=== PATIENT | male | born 1990 | race Caucasian/White ===

== ENCOUNTER 2018-04-22 08:00 | Outpatient (RCR) | payer OTHER, SELFPAY ==
--- NOTE | 2018-04-08 09:27 | HP.PTEVAL ---
Patient's Visit Information ARLINE GUPTA is a 27 year old M referred to Physical Therapy by Cliff Luz, BRITTNI-C with a diagnosis of . Date of Evaluation: 04/08/18 Physical Therapist: Scottie Diaz PT, - Visit Plan Frequency: 2x /Week Duration: 4 Weeks Plan: MICHELE RAMOS'S ,POSTURAL TRAINING,PROGRESS TO DLS ABD /PACK PROGRAM ,OKAY FOR MODALITIES FOR PAIN RELEIVE - Subjective Subjective: This 27 y/o male presents to physical therapy with with chronic back pain,scoliosis ot thoraciclumbar spine for 6 years. Patient has had pain since pain in [place].Pain located lumbar symmtrical with ocassional radiculopathy right leg. Patient has h/o spasms causing lumbar shit left side.Symmptoms aggravated bening,lifting,job demands,extended standing.Symptoms better rest . Pateint seen chiropractor worse. Bowel/bladder -. Coughing/sneezing postive. Denies partehrsia/tingling. Patient sleeping pattern afects sleeping.Patient seen DR ,x-rays showed DDD and recommended MEDS. Patient pain affects QOL and job demands. VOCATION: [employer]. SOCIAL: has children - Pain Bilateral Back Pain Intensity (Out of 10): 4 Pain Intensity Range: 10 - Objective POSTURE: WFL. GAIT: normal madi reciprocal pattern. NEURO: denies parathesia/tingling, reflexes L3-4,L4-5.L5-S1 1/3. SYMMTRIES: align. PALAPTION: unremarkable. MMT: QUADS/HAMS 4/5,HIP 4/5 ,ANKLE 5/5,+ ANR LEFT. LUMBAR ROM: flexion mod loss ,extension min/mod loss,side glides left WFL ,min loss right slight pain. FLEXABLITY: hams mod tight with SLR + - Special Tests L/S Slump test left side: Positive L/S Slump test right side: Negative L/S Left Straight Leg Raise: Positive L/S Right Straight Leg Raise: Negative Lumbar Standing: Flexion - Mechanical Response: No effect Lumbar Standing: Flexion - Symptoms During Testing: Increases Lumbar Standing: Flexion - Symptoms After Testing: Worse Lumbar Standing: Extension - Mechanical Response: No effect Lumbar Standing: Extension - Symptoms During Testing: Increases Lumbar Standing: Extension - Symptoms After Testing: Worse Lumbar Standing: Right Side Glides - Mechanical Response: No effect Lumbar Standing: Right Side [place] - Symptoms During Testing: Increases Lumbar Standing: Right Side [place] - Symptoms After Testing: No worse Lumbar Standing: Left Side [place] - Mechanical Response: No effect Lumbar Standing: Left Side [place] - Symptoms During Testing: Decreases Lumbar Standing: Left Side [place] - Symptoms After Testing: Better Lumbar Lying: Flexion - Mechanical Response: No effect Lumbar Lying: Flexion - Symptoms During Testing: Increases Lumbar Lying: Flexion - Symptoms After Testing: Worse Lumbar Lying: Extension - Mechanical Response: No effect Lumbar Lying: Extension - Symptoms During Testing: Decreases Lumbar Lying: Extension - Symptoms After Testing: Better Comments:: hips to right Lumbar Static: Slouched Sit - Mechanical Response: No effect Lumbar Static: Slouched Sit - Symptoms During Testing: Increases Lumbar Static: Slouched Sit - Symptoms After Testing: Worse Lumbar Static: Sitting Erect - Mechanical Response: No effect Lumbar Static: Sitting Erect - Symptoms During Testing: Decreases Lumbar Static: Sitting Erect - Symptoms After Testing: Better - Goals Goal 1:: Patient to be Independant with HEP Goal Time Frame: 4-6 Weeks Goal 2:: Patient to be Independant with posture/body mechanics Goal Time Frame: 4-6 Weeks Goal 3:: Patient to decrease pain by 60% or greater to improve function with Job demands and ADL'S Goal Time Frame: 4-6 Weeks Goal 4:: Patient to improve lumbar ROM for function of recovery Goal Time Frame: 4-6 Weeks Goal 5:: Patient to be D/C to prophalaxis Goal Time Frame: 4-6 Weeks Goal 6:: Patient to improve back owestry score by 5 points to improve QOL. - Rehabilitation Potential Physical Therapy Diagnosis: This patient has derranagemnt above knee with lateral component without shift deformity. with + ANR,SLR ,flexion aggravetes symptoms better with REIL with hips shifted thus benifit from skilled PT Rehabilitation Potential: Good - Anticipated Interventions Patient/Client Instruction: Educate patient on: Condition, Plan of Care For the Purpose of:: To decrease pain, To increase ROM, To improve muscle performance and motor function, To improve ability to perform ADL's, To increase tolerance to activity/condition/position, To improve performance and independence with ADL's, To improve ability of physical actions for home/community/work/leisure, To improve health of tissue, To decrease soft tissue restriction, To increase flexibility/ROM, To improve ability to perform tasks related to life management Therapeutic Exercise to Include: Strength training, Body mechanics, Postural training, Flexibilty training, Dynamic Lumbar Stabilization For the Purpose of:: To decrease pain, To increase ROM, To improve ability to perform ADL's, To increase tolerance to activity/condition/position, To improve ability of physical actions for home/community/work/leisure, To improve health of tissue, To decrease soft tissue restriction, To increase flexibility/ROM, To reduce risk of recurrence, To improve ability to perform tasks related to life management Manual Therapy Techniques to Include: Mobilization Comment: LUMBAR For the Purpose of:: To decrease pain, To increase ROM, To improve health of tissue, To decrease soft tissue restriction TENS: Yes IF ES: Yes Cryotherapy (ice pack, ice massage): Yes Thermo therapy (hot pack): Yes For the Purpose of:: To decrease pain, To decrease swelling/inflammation, To improve nutrient delivery to tissue, To increase oxygenation perfusion, To improve health of tissue, To decrease soft tissue restriction Thank you for the opportunity to evaluate your patient. For Medicare and Medicare HMO plans, please review the plan of care and approve it. It will need to be FAXED BACK to us at [phone] for Medicare purposes. Please let me know if there are questions or concerns regarding this plan of care. Physician Signature: Date:
--- NOTE | 2018-04-22 08:36 | HP.PTDCSUM ---
HP - PT D/C Summary It has been my pleasure to treat ARLINE GUPTA under orders from NEEL HayesC, for the diagnosis of CHRONIC BACK PAIN,SCOLIOSIS OF THORACIC SPINE ,DDD for a total of 4 visit(s). Discharge Date: 04/22/18 Please see the following information for a summary of their discharge status. - Subjective Subjective: Patient reports ready for d./c doing well..no pain. Back to normal activity - Pain Bilateral Back Pain Intensity (Out of 10): 0 - Overall Improvement % Improvement: 90 - Objective Objective/Function: POSTURE: WFL. GAIT: normal madi. PALAPTION: unremarkable. NEURO: intact. MMT: quads/hams 5/5,hip 4/5. LUMBAR ROM: WNL all planes of motion. -SLR - Goals Goal 1:: Patient to be Independant with HEP Goal Progress: Goal Met Goal 2:: Patient to be Independant with posture/body mechanics Goal Progress: Goal Met Goal 3:: Patient to decrease pain by 60% or greater to improve function with Job demands and ADL'S Goal Progress: Goal Met Goal 4:: Patient to improve lumbar ROM for function of recovery Goal Progress: Goal Met Goal 5:: Patient to be D/C to prophalaxis Goal Progress: Goal Met Goal 6:: Patient to improve back owestry score by 5 points to improve QOL. Goal Progress: Goal Met - Plan Plan: D/C - D/C Information Discharge Comments: HEP AND GYM If there are questions or concerns regarding this patient's physical therapy, please feel free to call me at [phone]. Thank you for the referral of this patient. Sincerely, Scottie Diaz, PT,
== END 2018-04-22 19:00 | disposition home or self-care (01) ==
LOC: PT 08:00
PROVIDERS: Family Provider Nurse Practitioner Family; PCP Nurse Practitioner Family; Referring Provider Nurse Practitioner Family; Visit Provider Nurse Practitioner Family
DX: M54.9 Dorsalgia, unspecified (principal); M41.9 Scoliosis, unspecified; M51.36 Other intervertebral disc degeneration, lumbar region
CPT/HCPCS: 97014; 97032; 97110; 97161; G0283

== ENCOUNTER 2018-10-10 08:00 | Outpatient (RCR) | payer OTHER, SELFPAY ==
--- NOTE | 2018-07-22 07:50 | HP.PTEVAL ---
Patient's Visit Information ARLINE GUPTA is a 27 year old M referred to Physical Therapy by [facility] with a diagnosis of L ACL sprain s/p repair with HS 07/04/18. Date of Evaluation: 07/22/18 Physical Therapist: Candido Hancock, DPT, OCS, CSCS - Visit Plan Frequency: 3x /Week Duration: 2-4 Months Plan: 3x/week initially for 4-8 weeks for. 1. Patella mobs, scar massage adn knee ROM flexion and ext. 2. strength in gym and progress to I. Focus hips and knees, but please teach core adn upper body machine and progress to I with these as tolerated so he can do them before or after his appointment. 3. quad and hip flexor stretches, teach yoag flow to get I on his own SOLO. 4. ice as needed but has a nice ice machine at home. 5. Functional progression back to steps now and as appropriate progressing to agility and plyometrics. in the future. - Subjective Findings: Hurt Olman knee playing soccer in [place] a few years ago. Was limiting his activity. ACL repaired on 07/04/18 using HS. Has a brace on order. Been doing exercises including QS and AP and patellar mobs and SLR, then progressed to step ups and wall squats and standing band exercises. pain has not been an issue, sore ness with much activitiy. Gets to 4/10 on medial knee with too much activity. No pain meds. Resting elevating and icing with [employer] icing machine. Sleep is not a problem now, was tough at first. 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 Will see doctor on 08/04/18.Needs to climb ladders and crawl around. Basic ADLS are OK, slow but steady. can't carry laundry to basement without handrail. Has children age 3 and 1. Has not been comfortable getting on floor yet. Hobbies including hunting and sports(basketball and soccer0. Has not been able to do those things. - Pain L kene Pain Intensity (Out of 10): 1 Pain Intensity Range: 0, 5 - Objective Walks I with minor L antalgia today, transfers I, steps are reciprocal without rail but meaghan on L. L knee AROM 0-109 and 115 after stretching , 105 in prone. 120 after bike adn dips. R knee to 125. Tightness in L HS with -25 90/90 test vs -15 on R. quad and gastroc min tight. AROM hips and ankles otherwise WFL. strength B hips at 4- abd and ext, 4+ hip flexion and adduction. knee strength ext L NT, HS 4/5. R side at 5/5. Ankle strength at 5/5 B. Patella moves well and nearly symmetrical. 2 ext lag with SLR on L. Incisions have healed well but are sore to the touch. No signs of redness heat or swelling. - claudia Kilgore - Goals Goal 1:: ST: Full aROM L knee without pain Goal Time Frame: 2-4 Weeks Goal 2:: Normal ADLS includijng steps adn walking pattern without pain Goal Time Frame: 2-4 Weeks Goal 3:: Pt ready to return to work activities Goal Time Frame: 8-12 Weeks Goal 4:: Plan to return to sports related activities of soccer and basketball Goal Time Frame: 12-16 Weeks Goal 5:: I approp HEP to minimize future problems Goal Time Frame: 6-8 Weeks - Rehabilitation Potential Physical Therapy Diagnosis: L ACL sprain s/p repair with HS 07/04 Rehabilitation Potential: Good - Anticipated Interventions Patient/Client Instruction: Educate patient on: Condition, Plan of Care For the Purpose of:: To decrease pain, To increase ROM, To improve muscle performance and motor function, To improve ability of physical actions for home/community/work/leisure Therapeutic Exercise to Include: Strength training, Flexibilty training, Gait and locomotor training, Passive ROM, Active ROM For the Purpose of:: To decrease pain, To increase ROM, To improve muscle performance and motor function, To improve ability of physical actions for home/community/work/leisure Manual Therapy Techniques to Include: Scar massage, Passive ROM, Soft tissue mobilization For the Purpose of:: To decrease pain, To increase ROM Cryotherapy (ice pack, ice massage): Yes For the Purpose of:: To decrease swelling/inflammation Thank you for the opportunity to evaluate your patient. For Medicare and Medicare HMO plans, please review the plan of care and approve it. It will need to be FAXED BACK to us at [phone] for Medicare purposes. For Medicare only, by signing this I certify the plan of care. Please let me know if there are questions or concerns regarding this plan of care. Physician Signature: Date:
--- NOTE | 2018-08-19 09:00 | HP.PTREVAL ---
[facility], It has been my pleasure to treat ARLINE GUPTA over the last 12 visits for L ACL sprain s/p repair with HS 07/04/18. Please see the progress note below for an update on the physical therapy plan of care! Subjective: Pain not much, a little bit here and there. Bending to en range used to hurt but not anymore. To doctor in 2-3 weeks. Saw him 2 weks ago and is way ahead of schedule. Sleeping well most of time. Steps are normal. Exercises not bothersome, not doing HEP other than some yoga flows. Objective/Function: 126 flexion L and 131 R. Similar quad tightness B. HS moving well. Walks normal and steps reciprocal and normal. PT DOING EXCELLENT ADN IS LIMITED BY HEALING PROCESS. pT DOING WELLA DN WAY AHEAD OF SCHEDULE. Plan Plan: PT TO CONTINUE I GYM WORKOUT 3X/WEEK, PLEASE ADD TODAYS EXERCISES TO HIS i PROGRAM THEN PROGRESS STRENGTH SLOWLY ON A WEEKLY BASIS GIVING HIM THE NEW STUFF TO HIS TOLERANCE. FOLLOW TRAN PROTOCOL Goals Goal 1:: ST: Full aROM L knee without pain Goal Time Frame: 2-4 Weeks Goal Progress: Goal Met Goal 2:: Normal ADLS includijng steps adn walking pattern without pain Goal Time Frame: 2-4 Weeks Goal Progress: Goal Met Goal 3:: Pt ready to return to work activities Goal Time Frame: 8-12 Weeks Goal 4:: Plan to return to sports related activities of soccer and basketball Goal Time Frame: 12-16 Weeks Goal 5:: I approp HEP to minimize future problems Goal Time Frame: 6-8 Weeks Goal Progress: Progressing Anticipated Interventions Patient/Client Instruction: Educate patient on: Condition, Plan of Care For the Purpose of:: To decrease pain, To increase ROM, To improve muscle performance and motor function, To improve ability of physical actions for home/community/work/leisure Therapeutic Exercise to Include: Strength training, Flexibilty training, Gait and locomotor training, Passive ROM, Active ROM For the Purpose of:: To decrease pain, To increase ROM, To improve muscle performance and motor function, To improve ability of physical actions for home/community/work/leisure Manual Therapy Techniques to Include: Scar massage, Passive ROM, Soft tissue mobilization For the Purpose of:: To decrease pain, To increase ROM Cryotherapy (ice pack, ice massage): Yes For the Purpose of:: To decrease swelling/inflammation Please do not hesitate to contact me at [phone] by phone or if you have questions or concerns regarding this new plan of care! Sincerely, Candido Hancock, DPT, OCS, CSCS
--- NOTE | 2018-10-10 08:55 | HP.PTREVAL ---
[facility], It has been my pleasure to treat ARLINE GUPTA over the last 17 visits for L ACL sprain s/p repair with HS 07/04/18. Please see the progress note below for an update on the physical therapy plan of care! Subjective: Started working last week. Very tired overall. No pain in knee lately. 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 Objective/Function: 26.5 inches L and 27 inches R. quad 107 L and 101 R pounds. 80# L HS and 95 # R HS. Jumping and agility without compensation or pain and looking very good with minmal workout today. Pt does nto have time to get into therapy more frequently and questionable whether he will have time to workout. Plan Plan: f/u in November as patient is busy with wrok and getting back to school but will attempt to continue to wrokout regularly per my recommendation. Plan to progress every other week for 2 months until meets return to sport criteria as he wants to play basketball at some point. Goals Goal 1:: ST: Full aROM L knee without pain Goal Time Frame: 2-4 Weeks Goal Progress: Goal Met Goal 2:: Normal ADLS includijng steps adn walking pattern without pain Goal Time Frame: 2-4 Weeks Goal Progress: Goal Met Goal 3:: Pt ready to return to work activities Goal Time Frame: 8-12 Weeks Goal Progress: Goal Met Goal 4:: Plan to return to sports related activities of soccer and basketball Goal Time Frame: 12-16 Weeks Goal Progress: Progressing, approp Goal 5:: I approp HEP to minimize future problems Goal Time Frame: 6-8 Weeks Goal Progress: Progressing, approp Anticipated Interventions Patient/Client Instruction: Educate patient on: Condition, Plan of Care For the Purpose of:: To decrease pain, To increase ROM, To improve muscle performance and motor function, To improve ability of physical actions for home/community/work/leisure Therapeutic Exercise to Include: Strength training, Flexibilty training, Gait and locomotor training, Passive ROM, Active ROM For the Purpose of:: To decrease pain, To increase ROM, To improve muscle performance and motor function, To improve ability of physical actions for home/community/work/leisure Manual Therapy Techniques to Include: Scar massage, Passive ROM, Soft tissue mobilization For the Purpose of:: To decrease pain, To increase ROM Cryotherapy (ice pack, ice massage): Yes For the Purpose of:: To decrease swelling/inflammation Please do not hesitate to contact me at [phone] by phone or if you have questions or concerns regarding this new plan of care! Sincerely, Candido Hancock, DPT, OCS, CSCS
--- NOTE | 2018-12-29 16:04 | HP.PT.NRP ---
HP - Discharge Summary (1) - Patient Information ARLINE GUPTA was seen in my office for initial evaluation on 07/22/18. The following Plan of Care was established for this patient: Initial Frequency: 3x /Week Initial Duration: 2-4 Months - Anticipated Interventions Patient/Client Instruction: Educate patient on: Condition, Plan of Care For the Purpose of:: To decrease pain, To increase ROM, To improve muscle performance and motor function, To improve ability of physical actions for home/community/work/leisure Therapeutic Exercise to Include: Strength training, Flexibilty training, Gait and locomotor training, Passive ROM, Active ROM For the Purpose of:: To decrease pain, To increase ROM, To improve muscle performance and motor function, To improve ability of physical actions for home/community/work/leisure Manual Therapy Techniques to Include: Scar massage, Passive ROM, Soft tissue mobilization For the Purpose of:: To decrease pain, To increase ROM Cryotherapy (ice pack, ice massage): Yes For the Purpose of:: To decrease swelling/inflammation This patient was last seen in our office 10/10/18. Pertinent comments regarding their Physical therapy will appear below: Pt seen 17 visits of POC and was going to workout I after last session and f/u with PT in early November as he was very busy. He neglected to schedule or attend randy session. At this point, it has been over two months and I will discontinue due to nonattendance. At this point I will be discontinuing this patient from physical therapy. I would be happy to see this patient again in the future if found appropriate by the physician. Thank you! Candido Hancock, DPT, OCS, CSCS
== END 2018-10-10 19:00 | disposition home or self-care (01) ==
LOC: PT 08:00
PROVIDERS: Family Provider Nurse Practitioner Family; PCP Nurse Practitioner Family
DX: M23.612 Other spontaneous disruption of anterior cruciate ligament of left knee (principal)
CPT/HCPCS: 97110; 97140; 97162; 97530

== ENCOUNTER 2021-07-25 08:23 | Outpatient (CLI) | payer BC, SELFPAY ==
--- NOTE | 2021-07-25 08:29 | RAD_ITS ---
STUDY: X-RAY - ESOPHAGUS (BARIUM SWALLOW) WITH FLUOROSCOPY REASON FOR EXAM: Male, 30 years old. DYSPHAGIA TECHNIQUE: 11 view(s) of the esophagus were obtained following swallowing of barium. FLUOROSCOPY TIME (if supplied): (48 seconds) minutes/seconds COMPARISON: None. FINDINGS: There is no demonstrated esophageal foreign body. There is no demonstrated stricture or mucosal abnormality. Normal gastroesophageal junction, without a demonstrated hiatal hernia. The patient ingested a 12 mm tablet of barium without any difficulty. Normal visualized aortic arch and descending thoracic aorta. Normal visualized pulmonary parenchyma. Normal visualized osseous structures of the thorax. RAD/Esophagus Dual Contrast IMPRESSION: Normal plain film x-ray examination (barium swallow) of the esophagus. Electronically Signed: Jamey Betancur MD at 9:59 EST , Service support ,
--- NOTE | 2021-07-25 08:29 | US_ITS ---
STUDY: THYROID ULTRASOUND REASON FOR EXAM: Male, 30 years old. THYROMEGALY TECHNIQUE: Ultrasound evaluation of the thyroid was performed with real-time and static lee-scale imaging. COMPARISON: None. FINDINGS: RIGHT LOBE: The right lobe of the thyroid gland is slightly enlarged and measures 5.4 cm x 2.7 cm x 2 cm. There is a heterogeneous echotexture. There are no demonstrated solid, cystic or complex lesions. LEFT LOBE: The left lobe of the thyroid gland measures 4.8 cm x 2 cm x 1.7 cm. There is a heterogeneous echotexture. There are no demonstrated solid, cystic or complex lesions. ISTHMUS: The isthmus measures 3 mm. The regional lymph nodes are normal. US/Thyroid IMPRESSION: Mild enlargement of the right lobe of the thyroid. Heterogeneous appearance of both lobes of the thyroid although no discrete nodule is seen. Electronically Signed: Jamey Betancur MD at 10:36 EST , Service support ,
== END 2021-07-25 23:59 | disposition short-term general hospital (02) ==
LOC: RAD 08:25
PROVIDERS: PCP Family Medicine; Referring Provider Family Medicine; Visit Provider Family Medicine
DX: E01.0 Iodine-deficiency related diffuse (endemic) goiter (principal); R13.10 Dysphagia, unspecified
CPT/HCPCS: 74221; 76536

== ENCOUNTER 2021-09-29 07:21 | Outpatient (CLI) | payer BC, SELFPAY ==
--- NOTE | 2021-09-29 07:26 | US_ITS ---
STUDY: ABDOMINAL ULTRASOUND - RIGHT UPPER QUADRANT REASON FOR VISIT: Male, 31 years old fatty liver -- RUQ TECHNIQUE: Ultrasound evaluation of the right upper quadrant was performed with real-time and static lee-scale imaging. TECHNICAL QUALITY: Adequate. COMPARISON: None. FINDINGS: Liver: The liver is mildly enlarged and measures 18 cm. There is increased echogenicity consistent with fatty infiltration. The bile ducts are within normal limits. There is hepatic color flow. The direction of portal flow is hepatopetal. There is no demonstrated mass lesion. Gallbladder: Normal distended gallbladder. The gallbladder wall measures 2.9 mm. There is a negative sonographic Forbes''s sign. There is no pericholecystic fluid. There are no gallstones. There is a 3 mm polyp along the gallbladder wall. Common Bile Duct (C.B.D.): The common bile duct measures 2.5 mm. Pancreas: Normal size of the head, body and tail of the pancreas. There is normal echogenicity of the pancreas. There is no demonstrated pancreatic mass or cyst. Right Kidney: Normal size of the right kidney. The right kidney measures 12.1 cm x 6.5 cm x 6.6 cm. Normal renal cortex. The right cortex measures 2.5 cm. There is no demonstrated renal mass or cyst. There is no right hydronephrosis. US/Abdomen Limited IMPRESSION: Mild degree of hepatomegaly with diffuse fatty infiltration of the liver. 3 mm gallbladder polyp. Electronically Signed: Jamey Betancur MD at 12:54 EDT ,
--- NOTE | 2021-09-29 07:26 | US_ITS ---
STUDY: ABDOMINAL ULTRASOUND - ELASTOGRAPHY REASON FOR VISIT: Male, 31 years old. Abnormal liver enzymes. TECHNIQUE: Liver stiffness measurements were obtained on a [employer] RS 85 ultrasound machine using a CA 1-7 probe following the SRU guidelines. 3 measurements were obtained using a 2-D-SWE method. The IQR/M was 22% suggesting a quality data set. TECHNICAL QUALITY: Adequate. COMPARISON: Comparison is made with prior sonogram done earlier today. FINDINGS: Liver: Fatty infiltration of the liver. Mild hepatomegaly. Median liver stiffness measured 4.5 kPa. US/Elastography Parenchyma/Organ IMPRESSION: Liver stiffness measures 4.5 kPa compatible with FO (Normal) Metavir score. Electronically Signed: Jamey Betancur MD at 14:08 EDT ,
== END 2021-09-29 23:59 | disposition home or self-care (01) ==
LOC: US 07:24
PROVIDERS: PCP Family Medicine; Referring Provider Nurse Practitioner Adult Health; Visit Provider Nurse Practitioner Adult Health
DX: K76.0 Fatty (change of) liver, not elsewhere classified (principal); R74.8 Abnormal levels of other serum enzymes
CPT/HCPCS: 76705; 76981

== ENCOUNTER 2021-10-24 06:04 | Day surgery (SDC) | payer BC, SELFPAY ==
[2021-10-24] MEDS: Lactated Ringers 1,000 ML 15 ML IV (06:15)
--- NOTE | 2021-10-24 06:31 | PCM.HP.BLA ---
History and Physical Date of Admission: 10/24/21 ARLINE GUPTA, is a 31 M who presents to the office today for GERD. He reports improvement since starting omeprazole, felt better almost immediately. He had been having a chronic sore throat which radiated to left ear. If he misses a day or 2 of omeprazole then his symptoms return. No cough, heartburn, or acid refluxing to the mouth. He had intermittent upper abd pain. He felt ill enough that he was repeated tested for covid, always negative. Negative for strep. Denies change in stools, no melena or hematochezia. No FH GI disorders. Normal barium swallow in July. He has been losing weight intentionally, avoiding gluten per his PCP's instructions since thyroid is enlarged. Thyroid ultrasound showed mild enlargement of the right lobe of the thyroid, no nodules Has been told he has fatty liver. July labs ALT 41, AST 83. Triglycerides 319, cholesterol 233, LDL 133, HDL 36. TSH 5.92 ROS Const Constitutional: No fatigue, fever(s), headache(s), weight change, sleep problems, abnormal sleep pattern or change in appetite ENT ENT: No headache(s), difficulty swallowing, hoarseness or sore throat Resp Respiratory: No cough, hemoptysis or shortness of breath Cardio Cardiology: No chest pain at rest or generalized swelling Gastro GI: No abdominal pain, belching, bloating, change in bowel habits, change in stool character, coffee ground emesis, constipation, cramping, diarrhea, heartburn, difficulty swallowing, feeling full early, excessive flatus, incontinent of stools, Vomiting blood/hematemesis, Blood in stool, loose stools, Black,tarry stools, nausea/dyspepsia, pain with swallowing or vomiting Musc Musculoskeletal: Positive for back pain; No numbness or tingling Skin Skin: No itchy eyes or rash Neuro Neurology: No behavioral changes, confusion, headache(s), numbness or tingling Psych Psychiatric: No abnormal sleep pattern, No anxiety, No behavioral changes, No change in appetite, No confusion and No depression Endo Endocrine: No cold intolerance, fatigue, heat intolerance, increased thirst/drinking or weight change Aller/Imm Allergy/Immunologic: No food intolerance or itchy eyes Jonathon/Lymp Hematologic/Lymphatic: No easy bleeding, easy bruising or enlarged lymph nodes Exam Const General: cooperative, comfortable, no acute distress, well developed and well groomed Eyes Sclera: sclerae normal Resp Effort & Inspection: normal respiratory effort Cardio Rate: regular rate Rhythm: regular rhythm GI Inspection: normal to inspection Auscultation: normal bowel sounds Palpation: soft, no hepatosplenomegaly and nontender Assessment and Plan Assessment and Plan (1) Gastroesophageal reflux disease: (2) Fatty liver: Status: Acute (3) Liver enzyme elevation: Status: Acute Orders: Orders: Abdomen Limited Today K76.0, R74.8 Elastography Parenchyma/Organ Today K76.0, R74.8 Plan - Jannet Haq DIRECTOR OF COLLECTIONS AND ARCHIVES, DIRECTOR OF COLLECTIONS AND ARCHIVES-C: 31-year-old male with GERD causing sore throat, symptoms controlled with omeprazole. Plan is EGD to evaluate for esophagitis, Bach's, gastritis. Then f/u 2 wks. Continue omeprazole 20 mg daily since it is effective. We may change his medication regimen based on what is found during EGD. Because of history of fatty liver, elevated AST and ALT, and dyslipidemia, we will get liver ultrasound and liver elastography. Based on those results we may need to do more liver labs. I have re-examined the patient. There are no clinical changes since date of exam.
[2021-10-24 06:33] VITALS: BP 134/73; PULSE 57; RESP 17; TEMP 36.3; O2SAT 99; BMI 33.6
--- NOTE | 2021-10-24 07:15 | EGD_PTH ---
PATIENT: ARLINE GUPTA LOC: [facility] [place] U#:[id number] AGE/SX: 31/M ROOM: RE10/24/[address]: Dr. Jagdeep Acosta DO : 1990 BED: DIS: 10/24/2021 SPEC #: [id number] RECD: 10/24/21 10:22 STATUS: SONI RESong #: [id number] VANI: 10/24/21 07:[address]: Jagdeep Acosta DEPT: SURGICAL PATHOLOGY RECD BY: Marguerite Lyn ENTERED: 10/24/21 10:34 SP TYPE: EGD BIOPSY GLENNA DR: Dr. Demario Patterson MD Tissues: A - Stomach, NOS B - Esophagus, NOS C - Esophagus, NOS Procedures: Special Stain Group II Surgery Specimen Level IV Alcian Blue/PAS (control) HEADER OPERATION: EGD ([facility] [place]) PRE-OP DIAGNOSIS: GERD, fatty liver, liver enzyme elevation TISSUE SUBMITTED: A - Greater curvature biopsy, B - Distal esophagus biopsy, C - Random esophagus biopsy MICROSCOPIC DIAGNOSIS A. Greater curvature, biopsy: Mild gastritis. See microscopic description and comment. B. Distal esophagus, biopsy: Fragments of gastric mucosa with mild chronic inflammation. Intestinal metaplasia (goblet cell metaplasia) not identified. See comment. C. Esophagus, random biopsy: Fragments of squamous epithelium with minimal chronic inflammation. A fragment of gastric mucosa, negative for intestinal metaplasia (goblet cell metaplasia). See comment. SJ:sherri 10/27/2021 COMMENT A. Immunohistochemistry for Helicobacter pylori can be performed if clinically indicated. Please notify the Laboratory if it is needed. B. Alcian blue/PAS stain with matched control is used in the evaluation of the specimen. C. Alcian blue/PAS stain with matched control is used in the evaluation of the specimen. Increased number of eosinophils consistent with esophagitis are not seen. MICROSCOPIC DESCRIPTION Slides are reviewed. A. The specimen shows fragments of gastric mucosa with chronic inflammatory cell infiltrates in the lamina propria consisting of lymphocytes and plasma cells, consistent with mild chronic gastritis. GROSS DESCRIPTION A - Received in fixative is one container labeled with the patient's name and designated greater curvature biopsy. The specimen consists of multiple irregular fragments of light langley soft tissue that in aggregate measure 1.2 x 0.3 x 0.1 cm. The specimen is totally submitted in one cassette. B - Received in fixative is one container labeled with the patient's name and designated distal esophagus biopsy. The specimen consists of two irregular fragments of light langley soft tissue that in aggregate measure 0.6 x 0.3 x 0.1 cm. The specimen is totally submitted in one cassette. C - Received in fixative is one container labeled with the patient's name and designated random esophagus biopsy. The specimen consists of multiple irregular fragments of light langley soft tissue that in aggregate measure 1.5 x 0.5 x 0.1 cm. The specimen is totally submitted in one cassette. / SJ:rg 10/24/2021 TC:3 CPT: 87319 x3, 91727 x2
--- NOTE | 2021-10-24 08:04 | OP.EGD_ITS ---
Patient Name: George Villa Procedure Date: 10/24/2021 7:43 AM Date of : 1990 Age: 31 Procedure: Upper GI endoscopy Indications: Functional Dyspepsia Providers: Jagdeep Acosta DO Medicines: See the Anesthesia note for documentation of the administered medications Patient Profile: This is a 31 year old male. Refer to note in patient chart for documentation of history and physical. Patient has symptoms of acute dyspepsia, acute heartburn and acute nausea. Complications: No immediate complications. Procedure: Pre-Anesthesia Assessment: - Prior to the procedure, a History and Physical was performed, and patient medications and allergies were reviewed. The patient is competent. The risks and benefits of the procedure and the sedation options and risks were discussed with the patient. All questions were answered and informed consent was obtained. Patient identification and proposed procedure were verified by the physician in the pre-procedure area. Mental Status Examination: alert and oriented. Airway Examination: normal oropharyngeal airway and neck mobility. Respiratory Examination: clear to auscultation. CV Examination: normal. Prophylactic Antibiotics: The patient does not require prophylactic antibiotics. Prior Anticoagulants: The patient has taken no previous anticoagulant or antiplatelet agents. ASA Grade Assessment: II - A patient with mild systemic disease. After reviewing the risks and benefits, the patient was deemed in satisfactory condition to undergo the procedure. The anesthesia plan was to use moderate sedation / analgesia (conscious sedation). Immediately prior to administration of medications, the patient was re-assessed for adequacy to receive sedatives. The heart rate, respiratory rate, oxygen saturations, blood pressure, adequacy of pulmonary ventilation, and response to care were monitored throughout the procedure. The physical status of the patient was re-assessed after the procedure. After obtaining informed consent, the endoscope was passed under direct vision. Throughout the procedure, the patient's blood pressure, pulse, and oxygen saturations were monitored continuously. The gastroscope was introduced through the mouth, and advanced to the second part of duodenum. The upper GI endoscopy was accomplished without difficulty. The patient tolerated the procedure well. Moderate Sedation: Moderate (conscious) sedation was personally administered by an anesthesia professional. The following parameters were monitored: oxygen saturation, heart rate, blood pressure, and response to care. Total physician intraservice time was 15 minutes. Scope In: 7:52:40 AM Scope Out: 7:59:15 AM Total Procedure Duration Time 0 hours 6 minutes 35 seconds Findings: LA Grade A (one or more mucosal breaks less than 5 mm, not extending between tops of 2 mucosal folds) esophagitis with no bleeding was found 37 to 40 cm from the incisors. Biopsies were taken with a cold forceps for histology. Verification of patient identification for the specimen was done. Estimated blood loss was minimal. Mucosal changes including longitudinal furrows and small-caliber esophagus were found in the upper third of the esophagus. Esophageal findings were graded using the Eosinophilic Esophagitis Endoscopic Reference Score (EoE-EREFS) as: Edema Grade 0 Normal (distinct vascular markings), Rings Grade 1 Mild (subtle circumferential ridges seen on esophageal distension), Exudates Grade 0 None (no white lesions seen) and Furrows Grade 1 Present (vertical lines with or without visible depth). Biopsies were taken with a cold forceps for histology. Verification of patient identification for the specimen was done. Estimated blood loss was minimal. Patchy mild inflammation characterized by erosions was found on the greater curvature of the stomach. Biopsies were taken with a cold forceps for histology. Verification of patient identification for the specimen was done. Estimated blood loss was minimal. The second portion of the duodenum was normal. Impression: - LA Grade A reflux esophagitis. Biopsied. - Esophageal mucosal changes suspicious for eosinophilic esophagitis. Biopsied. - Gastritis. Biopsied. - Normal second portion of the duodenum. Recommendation: - Discharge patient to home. - Resume previous diet. - Continue present medications. - Await pathology results. - Repeat upper endoscopy in 1 year for surveillance. - Return to GI office. Procedure Code(s): --- Professional --- 87336, Esophagogastroduodenoscopy, flexible, transoral; with biopsy, single or multiple CPT copyright 2017 [employer]. All rights reserved. The codes documented in this report are preliminary and upon hydraulic lift operator review may be revised to meet current compliance requirements. Jagdeep Acosta DO 10/24/2021 8:02:29 AM This report has been signed electronically. Number of Addenda: 1 Note Initiated On: 10/24/2021 7:43 AM Addendum Number: 1 Addendum Date: 04/09/2022 6:36:36 AM MAC was used as sedation for this procedure. Jagdeep Acosta DO 04/09/2022 6:36:44 AM This report has been signed electronically.
--- NOTE | 2021-10-24 08:04 | OP.CCLET_ITS ---
04/09/2022 Demario Patterson [address] [place] [address] Re : Upper GI endoscopy procedure for George Villa Dear Dr. Patterson This procedure was performed on Sunday, October 24, 2021. My impressions and recommendations are as follows: Impressions : - LA Grade A reflux esophagitis. Biopsied. - Esophageal mucosal changes suspicious for eosinophilic esophagitis. Biopsied. - Gastritis. Biopsied. - Normal second portion of the duodenum. Recommendations : - Discharge patient to home. - Resume previous diet. - Continue present medications. - Await pathology results. - Repeat upper endoscopy in 1 year for surveillance. - Return to GI office. My findings are described in the full procedure note, which is enclosed. If I can be of further assistance, please feel free to contact me at . Sincerely, Jagdeep Acosta, 10/24/2021 8:02:29 AM This report has been signed electronically.
[2021-10-24 08:05] VITALS: BP 124/66; BP 134/73; PULSE 62; RESP 16; TEMP 36.3; O2SAT 95
[2021-10-24 08:10] VITALS: BP 119/70; BP 134/73; PULSE 60; RESP 16; O2SAT 94
[2021-10-24 08:15] VITALS: BP 113/71; BP 134/73; PULSE 59; RESP 16; O2SAT 95
[2021-10-24 08:20] VITALS: BP 115/73; BP 134/73; PULSE 57; RESP 16; TEMP 36.2; O2SAT 96
[2021-10-24 08:41] VITALS: BP 134/73
== END 2021-10-24 23:59 | disposition home or self-care (01) ==
LOC: SDC 06:05 → AC 06:07
PROVIDERS: PCP Family Medicine; Referring Provider Family Medicine; Visit Provider Internal Medicine Gastroenterology
PROC: 0DJ08ZZ Inspection of Upper Intestinal Tract, Via Natural or Artificial Opening Endoscopic (ICD-10-PCS; CPT 43235; principal; 2021-10-24 07:10)
DX: K29.50 Unspecified chronic gastritis without bleeding (principal); K21.00 Gastro-esophageal reflux disease with esophagitis, without bleeding; K76.0 Fatty (change of) liver, not elsewhere classified
CPT/HCPCS: 43239; 88305; 88313; J7120; J2405

== ENCOUNTER → 2021-12-04 | Outpatient (CLI) | payer BC, SELFPAY ==
[2021-12-04 10:01] LABS: Absolute Neutrophil Count 2.6 X10^3/uL (2.0-7.7); Basophil# 0.03 X10^3/uL; Basophil% 0.5 % (0-1); Eosinophil# 0.17 X10^3/uL; Eosinophils% 2.7 % (0-5); Hematocrit 44.4 % (40-54); Hemoglobin 15.1 g/dL (13.0-16.5); Lymphocyte % 45.2 % (19-41); Mean Corpuscular Hgb 29.8 pg (27.0-32.0); Mean Corpuscular Volume 87.6 fL (80-94); Mean Platelet Vol. 9.3 fl (6.2-12.0); Monocyte# 0.57 X10^3/uL; Monocyte% 9.2 % (0-10); NRBC Flagged by Analyzer 0 % (0-5); Neutrophil % 42.1 % (47-70); Platelet Count 250 K/mm3 (150-450); RBC Distribution Width CV 11.8 % (11.6-14.6); RBC Distribution Width SD 37.5 fl (35.1-43.9); Red Blood Count 5.07 M/mm3 (4.6-6.2); White Blood Count 6.2 K/mm3 (4.4-11.0)
[2021-12-04 10:57] LABS: ALB/GLOB Ratio 1.1 RATIO (0.9-2.4); AST(SGOT) 30 U/L (15-37); Alanine Aminotransfer ALT/SGPT 49 U/L (16-61); Albumin, Serum 4.1 g/dL (3.2-5.0); Alkaline Phosphatase 103 U/L (45-117); Anion Gap 9 (5-15); BUN 17 mg/dL (7-18); BUN/Creat Ratio 17.6 RATIO (10-20); Chloride 104 mmol/L (98-107); Creatinine, Serum 0.97 mg/dL (0.70-1.30); EST Glomerular Filtration Rate 95 mL/min (>60); Est Glom Filt Rate - Afr Amer 115 mL/min (>60); Globulin 3.8 g/dL (2.2-4.2); Glucose 94 mg/dL (74-106); Protein, Total 7.9 g/dL (6.4-8.2); Sodium Level 139 mmol/L (136-145); T4 Free Direct 0.94 ng/dL (0.76-1.46); Thyroid Stim Hormone (TSH) 2.34 uIU/mL (0.358-3.74)
[2021-12-04 11:06] LABS: Hepatitis B Surface Antibody Reactive; Hepatitis B Surface Antigen Non-Reactive (Nonreactive); Hepatitis C Antibody Non-Reactive (Nonreactive)
[2021-12-06 11:37] LABS: Anti-Thyroglobulin AB < 1.0 IU/mL (0.0-0.9); Thyroglobulin, Serum Qt. 25.5 ng/mL (1.4-29.2); Thyroid Peroxidase AB 10 IU/mL (0-34)
== END | disposition home or self-care (01) ==
LOC: MFPLAB 08:35
PROVIDERS: PCP Family Medicine; Referring Provider Family Medicine; Visit Provider Family Medicine
DX: E01.0 Iodine-deficiency related diffuse (endemic) goiter (principal); Z80.0 Family history of malignant neoplasm of digestive organs; R79.89 Other specified abnormal findings of blood chemistry
CPT/HCPCS: 36415; 80053; 84432; 84439; 84443; 85025; 86376; 86706; 86800; 86803; 87340

== ENCOUNTER → 2022-05-29 | Outpatient (CLI) | payer BC, SELFPAY ==
--- NOTE | 2022-05-29 09:01 | RAD_ITS ---
STUDY: X-RAY - LUMBAR SPINE REASON FOR EXAM: Male, 31 years old. Radiating low back pain TECHNIQUE: 2 view(s) of the lumbar spine were obtained. COMPARISON: None FINDINGS: Normal lumbar lordosis. There is no substantial scoliosis. There is a normal alignment of the vertebrae. Normal vertebral bodies and endplates. Normal disc space heights except for narrowing at L4-5. There is no demonstrated fracture. The soft tissue structures are unremarkable. RAD/Lumbar Spine 2 or 3 Views IMPRESSION: Degenerative changes at L4-5, otherwise unremarkable lumbar spine Electronically Signed: Eamon Hodge MD at 14:20 EST ,
[2022-05-29 09:58] LABS: Absolute Neutrophil Count 3.1 X10^3/uL (2.0-7.7); Basophil# 0.04 X10^3/uL; Basophil% 0.6 % (0-1); Eosinophil# 0.13 X10^3/uL; Eosinophils% 1.8 % (0-5); Hematocrit 45.2 % (40-54); Hemoglobin 15.7 g/dL (13.0-16.5); Lymphocyte % 45.3 % (19-41); Mean Corp Hgb Conc 34.7 g/dL (32-36); Mean Corpuscular Hgb 30.2 pg (27.0-32.0); Mean Corpuscular Volume 86.9 fL (80-94); Mean Platelet Vol. 9.4 fl (6.2-12.0); Monocyte# 0.62 X10^3/uL; Monocyte% 8.8 % (0-10); NRBC Flagged by Analyzer 0 % (0-5); Neutrophil # 3.05 X10^3/uL (2.7-7.7); Neutrophil % 43.2 % (47-70); Platelet Count 314 K/mm3 (150-450); RBC Distribution Width CV 11.9 % (11.6-14.6); RBC Distribution Width SD 37.7 fl (35.1-43.9); White Blood Count 7.1 K/mm3 (4.4-11.0)
[2022-05-29 10:40] LABS: ALB/GLOB Ratio 1.1 RATIO (0.9-2.4); AST(SGOT) 30 U/L (15-37); Alanine Aminotransfer ALT/SGPT 65 U/L (16-61); Albumin, Serum 4.1 g/dL (3.2-5.0); Alkaline Phosphatase 99 U/L (45-117); Anion Gap 6 (5-15); BUN 18 mg/dL (7-18); BUN/Creat Ratio 15.7 RATIO (10-20); Calcium,Total 9.2 mg/dL (8.5-10.1); Chloride 102 mmol/L (98-107); Cholesterol 218 mg/dL (200); Creatinine, Serum 1.15 mg/dL (0.70-1.30); EST Glomerular Filtration Rate 78 mL/min (>60); Est Glom Filt Rate - Afr Amer 94 mL/min (>60); Globulin 3.9 g/dL (2.2-4.2); Glucose 105 mg/dL (74-106); High Density Lipoprotein 39 mg/dL; Potassium 3.9 mmol/L (3.5-5.1); Sodium Level 138 mmol/L (136-145); Triglycerides 437 mg/dL
== END | disposition home or self-care (01) ==
LOC: MTLAB 08:17
PROVIDERS: PCP Family Medicine; Referring Provider Family Medicine; Visit Provider Family Medicine
DX: E66.9 Obesity, unspecified (principal); K21.9 Gastro-esophageal reflux disease without esophagitis; M54.16 Radiculopathy, lumbar region
CPT/HCPCS: 36415; 72100; 80053; 80061; 85025

== ENCOUNTER → 2022-07-30 | Outpatient (CLI) | payer BC, SELFPAY ==
[2022-07-30 10:30] LABS: Hemoglobin A1c 5.1 % (3.8-5.6)
[2022-07-30 10:48] LABS: Cholesterol 253 mg/dL (200); High Density Lipoprotein 47 mg/dL; Triglycerides 241 mg/dL; Very Low Density Lipoprotein 48 mg/dL (5-40)
== END | disposition home or self-care (01) ==
LOC: MFPLAB 08:54
PROVIDERS: PCP Family Medicine; Referring Provider Family Medicine; Visit Provider Family Medicine
DX: R73.9 Hyperglycemia, unspecified (principal); E78.2 Mixed hyperlipidemia
CPT/HCPCS: 36415; 80061; 83036

== ENCOUNTER 2023-12-13 10:48 | Emergency (ER) | payer OTHER, SELFPAY ==
[2023-12-13 10:49] VITALS: BP 161/91; PULSE 71; RESP 18; TEMP 35.7; O2SAT 100; BMI 38.3
--- NOTE | 2023-12-13 11:05 | RAD_ITS ---
STUDY: X-RAY - RIGHT FOOT CLINICAL: Male, 33 years old. Pain following injury. TECHNIQUE: 3 view(s) of the foot. COMPARISON: None. FINDINGS: Normal talus, calcaneus, and tarsal bones. Normal visualized subtalar, talonavicular, calcaneocuboid, tarsal and tarsometatarsal articulations. Normal metatarsi. Normal metatarsophalangeal joint of the great toe. Normal tibial and fibular sesamoid bones. Normal interphalangeal joint of the great toe. Normal phalanges of the great toe. Normal second through fifth metatarsophalangeal joints. Normal interphalangeal joints and phalanges of the lesser toes. The soft tissue structures are unremarkable. RAD/Foot min 3 Views IMPRESSION: Normal x-ray examination of the foot. Electronically Signed: Jamey Betancur MD at 12:16 EDT ,
--- NOTE | 2023-12-13 12:04 | ED.VIS.LOWEX ---
HPI History of Present Illness Chief Complaint: Lower Extremity Injury Narrative Narrative: 33-year-old male presenting with right foot pain. He states he was playing softball and running around the bases and as he went across second base he felt a pop in the medial aspect of the right foot. He has been able to ambulate but states he has antalgic gait. He is Bruising at this portion of the foot. No ankle pain. He is taking meloxicam which has had for a while and not taking anything additional. He has not tried icing or elevating. [facility] Medical History De Quervain's tenosynovitis, right Right wrist sprain Fatty liver Back pain Dietary restriction Gastric reflux Former smoker Elevated LFTs Dysphagia Obesity Thyromegaly URI (upper respiratory infection) Lab test negative for COVID-19 virus Home Medications ?Medication ?Instructions ?Recorded ?Last Taken ?Type cyclobenzaprine 10 mg tablet 10 mg PO DAILY PRN Muscle Pain 09/19/21 Unknown History meloxicam 15 mg tablet 15 mg PO DAILY PRN Pain 09/19/21 Unknown History multivitamin 3 tab PO DAILY 09/19/21 Unknown History sertraline 25 mg tablet 25 mg PO DAILY 09/19/21 Unknown History amoxicillin 500 mg tablet 500 mg PO BID #20 tabs 09/18/23 Unknown Rx Allergy/AdvReac Type Severity Reaction Status Date / Time No Known Allergies Allergy Verified 12/13/23 10:49 Family History Father Colon cancer Grandfather CVA (cerebral vascular accident) Diabetes Arthritis Testicular cancer Grandmother Arthritis Uncle FH: kidney cancer Surgical History S/P ACL surgery Social History Smoking Status: Former smoker Tobacco: How many years used: 3 alcohol intake: current alcohol intake frequency: holidays/special occasions only substance use type: does not use ROS ROS ED Constitutional Constitutional ED: Denies chills, fever(s) or sweats Eyes Eyes: Denies blurry vision or change in vision ENT ENT ED: Denies ear pain or sore throat Cardiovascular Cardiovascular: Denies chest pain, palpitations or racing heartbeat Respiratory/Chest Respiratory/Chest: Denies cough, dyspnea or sputum Gastrointestinal Gastrointestinal: Denies abdominal pain, constipation, diarrhea, nausea or vomiting Genitourinary Genitourinary ED: Denies dysuria, hematuria or urinary frequency Musculoskeletal Musculoskeletal: Reports other Details: Right foot pain ; Denies arthralgias, myalgias or neck pain Integumentary Denies abscess, Abrasions or rash Neurologic Neurologic: Denies headache(s), paresthesias or weakness Psychiatric Psychiatric: Denies anxiety, depression, suicidal ideation or suicidal thoughts Endocrine Endocrinology: Denies polydipsia or polyuria EXAM Physical Exam Const Vital Signs: 12/13/23 10:49 Temperature 96.2 F L Temperature Source Temporal Pulse Rate 71 Respiratory Rate 18 Blood Pressure 161/91 H Blood Pressure Mean 114 Pulse Ox 100 Oxygen Delivery Method Room Air Positive well nourished General Appearance ED: NAD HEENT Reports moist mucous membranes Resp normal respiratory effort Cardio regular rate and regular rhythm Extremity Extremity Narrative: Pain to palpation of the medial aspect of the right foot. No bruising noted here. No bony tenderness. Neuro oriented x3 and CN's II-XII intact bilaterally Sensorium / Orientation: alert MDM MDM MDM Narrative Medical decision making narrative: Patient presenting right foot pain. X-rays of the right foot on my interpretation show no acute fracture or subluxation. Radiology interprets this and agrees. Spoke with Dr. Ramos who is on-call he thought maybe based on the presentation he probably tore his plantar fascia. Recommended he continue to wear his boots with custom orthotics in them and follow-up with him in the office. Tylenol ibuprofen for pain. Ice and elevation as needed. Impression: 1. Tear of plantar fascia Radiography Diagnostic Testing: Clinical Impression(s) from Imaging Studies Foot X-Ray 12/13/23 11:05 IMPRESSION: Normal x-ray examination of the foot. Electronically Signed: Jamey Betancur MD at 12:16 EDT , Discharge Plan Triage Chief Complaint: Lower Extremity Injury ED Provider: Tony Gardner Dx/Rx/DC Orders Instructions: ED Foot Sprain Prescriptions: No Action sertraline 25 mg tablet 25 mg PO DAILY cyclobenzaprine 10 mg tablet 10 mg PO DAILY PRN (Reason: Muscle Pain) meloxicam 15 mg tablet 15 mg PO DAILY PRN (Reason: Pain) multivitamin Tablet 3 tab PO DAILY amoxicillin 500 mg tablet 500 mg PO BID Qty: 20 0RF Primary Care Provider: Demario Patterson Referrals: Demario Patterson MD [Primary Care Provider] - Ron Ramos DPM [Med Staff - Active Staff] - 3-5 Days Print Language: Armenian Disposition Disposition: Home, Self Care Discharge Date/Time: 12/13/23 12:43
== END 2023-12-13 12:43 | disposition home or self-care (01) ==
PROVIDERS: Emergency Provider Student in an Organized Health Care Education/Training Program; PCP Family Medicine; Visit Provider Student in an Organized Health Care Education/Training Program
DX: S90.32XA Contusion of left foot, initial encounter (principal); Z87.891 Personal history of nicotine dependence; X58.XXXA Exposure to other specified factors, initial encounter; Y93.64 Activity, baseball; Y92.89 Other specified places as the place of occurrence of the external cause; K21.9 Gastro-esophageal reflux disease without esophagitis
CPT/HCPCS: 73630; 99282

== ENCOUNTER → 2024-09-12 | Outpatient (CLI) | payer BC, SELFPAY ==
--- NOTE | 2024-09-12 16:26 | RAD_ITS ---
PROCEDURE: HAND MIN 3 VIEWS REASON FOR EXAM: Right hand injury TECHNIQUE: 3 view(s) of the right hand COMPARISON: None. FINDINGS: No visible fracture. No suspicious bone lesion. Normal alignment. Soft tissues are unremarkable. RAD/Hand Min 3 Views IMPRESSION: No acute osseous abnormality in the right hand Reading Location: [facility]
== END | disposition home or self-care (01) ==
LOC: MTRAD 16:26
PROVIDERS: PCP Family Medicine; Referring Provider Physician Assistant; Visit Provider Physician Assistant
DX: S69.91XA Unspecified injury of right wrist, hand and finger(s), initial encounter (principal)
CPT/HCPCS: 73130

== ENCOUNTER → 2025-02-12 | Outpatient (CLI) | payer BC, SELFPAY ==
--- NOTE | 2025-02-12 16:13 | RAD_ITS ---
PROCEDURE: ANKLE MIN 3 VIEWS 02/12/2025 REASON FOR EXAM: PAIN TECHNIQUE: ANKLE MIN 3 VIEWS COMPARISON: None. FINDINGS: Bones: No acute bony abnormalities. Joints: No dislocations. Soft tissues: No soft tissue abnormalities. RAD/Ankle min 3 Views IMPRESSION: No acute bony abnormalities. Reading Location: [id number]
--- NOTE | 2025-02-12 16:13 | RAD_ITS ---
PROCEDURE: FOOT MIN 3 VIEWS 02/12/2025 REASON FOR EXAM: PAIN TECHNIQUE: FOOT MIN 3 VIEWS COMPARISON: None. FINDINGS: Bones: No acute fractures. Joints: Unremarkable. Soft tissues: No soft tissue abnormalities. RAD/Foot min 3 Views IMPRESSION: No acute bony abnormalities. Reading Location: [id number]
== END | disposition home or self-care (01) ==
LOC: MTRAD 16:13
PROVIDERS: PCP Family Medicine; Referring Provider Physician Assistant; Visit Provider Physician Assistant
DX: M25.571 Pain in right ankle and joints of right foot (principal); M79.671 Pain in right foot
CPT/HCPCS: 73610; 73630